=== PATIENT | male | born 1985 | race Caucasian/White ===

== ENCOUNTER → 2017-06-05 | Outpatient (CLI) | payer BC ==
[2017-06-05 13:28] LABS: Bilirubin, Delta 0.2 mg/dL (0.0-0.2); Total Bilirubin 0.9 mg/dL (0.2-1.3); Total Protein 8.4 g/dL (6.3-8.2)
[2017-06-05 19:41] LABS: Iron Saturation 22.34 (15.00-50.00); Iron(FE) 63 ug/dL (65-175); Total Iron Binding Capacity 282 ug/dL (228-460)
[2017-06-05 20:45] LABS: ANA w/Reflex to Titer NEGATIVE (NEGATIVE)
== END | disposition home or self-care (01) ==
LOC: LABWHC1 12:13
PROVIDERS: ATTEND Physician Assistant
DX: R94.5 Abnormal results of liver function studies (principal)
CPT/HCPCS: 36415; 80074; 80076; 82103; 82390; 82728; 83516; 83540; 83550; 84165; 86038

== ENCOUNTER → 2023-04-24 | Outpatient (CLI) | payer BC ==
--- NOTE | 2023-04-24 08:35 | US ---
EXAMINATION TYPE: US abdomen complete DATE OF EXAM: 04/24/2023 COMPARISON: NONE CLINICAL INDICATION: Male, 37 years old with history of K27.9 PEPTIC ULC, SITE UNSP, UNSP AC OR CH R, W/; abd pain, needs US prior to CT TECHNIQUE: Multiple sonographic images of the abdomen are obtained. FINDINGS: EXAM MEASUREMENTS: Liver Length: 18.7 cm Gallbladder Wall: 0.2 cm CBD: 0.5 cm Spleen: 13.0 cm Right Kidney: 9.8 x 5.5 x 6.7 cm Left Kidney: 11.3 x 5.5 x 6.0 cm Pancreas: wnl Liver: enlarged and difficult to penetrate Gallbladder: wnl Evidence for sonographic Stanford's sign: no CBD: wnl Spleen: enlarged Right Kidney: hypoechoic mid pole are may be normal anatomy versus other etiology Left Kidney: wnl Upper IVC: wnl Abd Aorta: wnl The intrahepatic portion of the IVC and proximal abdominal aorta are within normal limits. There is no evidence of cholelithiasis. Common bile duct is unremarkable. The visualized portions of the ibrahim creas are homogenous. The spleen is unremarkable. Kidneys are symmetric and free of hydronephrosis. No renal lesions are seen. IMPRESSION: 1. Hepatomegaly with underlying hepatic steatosis.
== END | disposition home or self-care (01) ==
LOC: RADUSWWP 07:35
PROVIDERS: ATTEND Pediatrics
DX: K27.9 Peptic ulcer, site unspecified, unspecified as acute or chronic, without hemorrhage or perforation (principal); K76.0 Fatty (change of) liver, not elsewhere classified; R16.0 Hepatomegaly, not elsewhere classified
CPT/HCPCS: 76700